=== PATIENT | female | born 1995 | race Caucasian/White ===

== ENCOUNTER 2018-06-07 21:18 | Emergency (ER) | payer OTHER ==
--- NOTE | 2018-06-07 21:21 | ER Report ---
History and Physical Time Seen By MD: 21:22 HPI/ROS CHIEF COMPLAINT: Urinary tract symptoms HISTORY OF PRESENT ILLNESS: 19-year-old female presents a to the ER complaining of urinary tract symptoms since this morning. She's been taking Pyridium. Her urine is orange, but still in significant discomfort when is no back pain, no headache. No nausea or vomiting. She notes some subjective chills. Her last menstrual. It is unknown. Patient has an IUD. She denies risk of . Patient states her last urinary tract infection was 3 years ago. REVIEW OF SYSTEMS: Respiratory: No cough, no dyspnea. Cardiovascular: No chest pain, no palpitations. Gastrointestinal: As above Musculoskeletal: No back pain. Allergies: Coded Allergies: No Known Drug Allergies (Unverified , 06/07/18) Home Meds Active Scripts Cephalexin Monohydrate (CEPHALEXIN) 500 Mg Cap, 500 MG PO TID for infection, #20 CAP TAKE 1 CAPSULE BY MOUTH EVERY SIX HOURS Prov:WILMER ZIMMERMAN DO 06/07/18 Reported Medications Triamcinolone Acetonide 0.1% Oint 15 Gm Tube (TRIAMCINOLONE ACETONIDE 0.1% 15 GM TUBE) 15 Gm Oint...g., 1 HOWARD TP PRN PRN for RASH, TUBE 06/07/18 Reviewed Nurses Notes: Yes Old Medical Records Reviewed: Yes Constitutional Vital Sign - Last 24 Hours 06/07/18 06/07/18 06/07/18 06/07/18 21:25 21:30 21:48 21:53 Temp 98.1 Pulse 82 78 78 Resp 16 B/P (MAP) 130/85 127/87 (100) Pulse Ox 94 94 94 Physical Exam General Appearance: The patient is alert, has no immediate need for airway protection and no current signs of toxicity.. Vital signs stable, afebrile HEENT: Pupils equal and round no injection. Oropharyngeal redness or exudate, mucous. Membranes are moist Respiratory: Chest is non tender, lungs are clear to auscultation. Cardiac: regular rate and rhythm Gastrointestinal: Abdomen is soft and non tender, no masses, bowel sounds normal. No CVA tenderness Musculoskeletal: Neck: Neck is supple and non tender. Extremities have full range of motion and are non tender. Skin: No rashes or lesions. DIFFERENTIAL DIAGNOSIS: After history and physical exam differential diagnosis was considered for abdominal pain in a female including but not limited to ov kofi cyst, pelvic inflammatory disease, ovarian torsion, urinary tract infection, and appendicitis. Medical Decision Making Data Points Laboratory Hematology Test 06/07/18 21:22 Urine Color [place] Urine Clarity Clear Urine pH Color interference Urine Specific [place] Color interference Urine Protein Color interference Urine Glucose (UA) Color interference Urine Ketones Color interference Urine Blood Color interference Urine Nitrite Color interference Urine Bilirubin Color interference Urine Urobilinogen Color interference Urine Leukocyte Esterase Color interference Urine RBC None /HPF (0-2/HPF) Urine WBC 40 /HPF (0-5/HPF) Urine Squamous Epithelial Cells Few /LPF (</=FEW) Urine Bacteria Few /HPF (NONE-FEW) Urine Mucus None /HPF (NONE-FEW) Urine HCG, Qualitative Negative (NEGATIVE) Chemistry Test 06/07/18 21:22 Urine Color [place] Urine Clarity Clear Urine pH Color interference Urine Specific [place] Color interference Urine Protein Color interference Urine Glucose (UA) Color interference Urine Ketones Color interference Urine Blood Color interference Urine Nitrite Color interference Urine Bilirubin Color interference Urine Urobilinogen Color interference Urine Leukocyte Esterase Color interference Urine RBC None /HPF (0-2/HPF) Urine WBC 40 /HPF (0-5/HPF) Urine Squamous Epithelial Cells Few /LPF (</=FEW) Urine Bacteria Few /HPF (NONE-FEW) Urine Mucus None /HPF (NONE-FEW) Urine HCG, Qualitative Negative (NEGATIVE) Urinalysis Test 06/07/18 21:22 Urine Color [place] Urine Clarity Clear Urine pH Color interference Urine Specific [place] Color interference Urine Protein Color interference Urine Glucose (UA) Color interference Urine Ketones Color interference Urine Blood Color interference Urine Nitrite Color interference Urine Bilirubin Color interference Urine Urobilinogen Color interference Urine Leukocyte Esterase Color interference Urine RBC None /HPF (0-2/HPF) Urine WBC 40 /HPF (0-5/HPF) Urine Squamous Epithelial Cells Few /LPF (</=FEW) Urine Bacteria Few /HPF (NONE-FEW) Urine Mucus None /HPF (NONE-FEW) Urine HCG, Qualitative Negative (NEGATIVE) ED Course/Re-evaluation ED Course Patient's admitted to an examination room. H&P is done. The actual diagnoses was considered. On clinical examination. Patient's clinical presentation is consistent with UTI. Urinalysis shows 40 white blood cells. A lot of the colorimeter was changed since she was taking Pyridium. A urinary cultures ordered. Patient be treated with Keflex 500 mg 3 times a day. She's given 1000 mg to start. Patient's discharged home with a take-home pack of Lortab for temperature pain relief tonight. She is advised to continue on ibuprofen and Azo. Patient's advised to push fluids. Decision to Disposition Date: Jun 07, 2018 Decision to Disposition Time: 21:53 Depart Departure Latest Vital Signs Vital Signs Date Time Temp Pulse Resp B/P (MAP) Pulse Ox O2 Delivery O2 Flow Rate FiO2 06/07/18 21:53 78 94 06/07/18 21:30 127/87 (100) 06/07/18 21:25 98.1 16 Impression: Primary Impression: Urinary tract infection Condition: Improved Disposition: HOME OR SELF-CARE New Scripts Cephalexin Monohydrate (CEPHALEXIN) 500 Mg Cap 500 MG PO TID for infection, #20 CAP TAKE 1 CAPSULE BY MOUTH EVERY SIX HOURS Prov: WILMER ZIMMERMAN DO 06/07/18 Patient Instructions: Urinary Tract Infection in Women (ED) Additional Instructions: Drink plenty of fluids Take ibuprofen 200 mg for inflammatory pain relief. 3 tablets 3 times a day with food Finished taking Keflex antibiotic 500 mg 3 times daily Follow-up with [facility] if unimproved in 2 days Problem Qualifiers Primary Impression: Urinary tract infection Urinary tract infection type: acute cystitis Hematuria presence: without hematuria Qualified Codes: N30.00 - Acute cystitis without hematuria WILMER ZIMMERMAN DO Jun 07, 2018 21:21
[2018-06-07] MEDS ORDERED: TRIA15OI20 TP (21:29)
[2018-06-07 21:30] VITALS: BP 127/87
[2018-06-07] MEDS ORDERED: CEPHALEXIN MONO 500 MG CAP PO ONE (21:55)
[2018-06-07] MEDS ORDERED: CEPH500C24 PO (21:55)
[2018-06-07] MEDS ORDERED: ACET/HYDROC 5/325MG TH ER ONLY 2 TAB/BOTTLE PO ONE (21:55)
== END 2018-06-07 22:03 | disposition home or self-care (01) ==
LOC: ER 21:29
DX: N30.00 Acute cystitis without hematuria (principal)
CPT/HCPCS: 81001; 81025; 87088; 99283

== ENCOUNTER → 2018-09-26 | Outpatient (CLI) | payer OTHER ==
[~2018-09-26] MED LIST: CEPH500C24 PO; TRIA15OI20 TP
--- NOTE | 2018-09-26 11:48 | RADIOLOGY IMAGING REPORT ---
FACILITY: [facility] PATIENT NAME: Claire Argueta : 1995 MR: [id number] V: [id number] EXAM DATE: ORDERING PHYSICIAN: DANILO BARNES TECHNOLOGIST: Location: [facility] [place] Patient: Claire Argueta : 1995 Visit/Account:[id number] Date of Sevice: 09/26/2018 Exam type: XR WRIST 3 OR MORE VIEWS LT History: Fell on ice with pain Comparison: None. Findings: There is a vertical intra-articular fracture through the lateral aspect of the distal metaphysis of t he left radius that appears nondisplaced. Subtle horizontal lucency through the proximal and middle third of the left navicular bone only seen on one view. This is not confirmed on the navicular view and likely represents a superimposed shadow. IMPRESSION: 1. Vertical intra-articular nondisplaced fracture to the lateral aspect of the distal left radial me taphysis Report Dictated By: Vernell Carrasco MD at 09/26/2018 11:04 AM Report E-Signed By: Vernell Carrasco MD at 09/26/2018 11:44 AM WSN:[id number]
== END ==
LOC: RAD 09:44
PROVIDERS: ATTEND Family Medicine
DX: S52.592A Other fractures of lower end of left radius, initial encounter for closed fracture (principal)